=== PATIENT | female | born 1985 | race Caucasian/White ===

== ENCOUNTER → 2016-07-08 | Outpatient (CLI) | payer BC ==
--- NOTE | 2016-07-08 19:38 | US ---
EXAMINATION TYPE: US transvaginal DATE OF EXAM: 07/08/2016 6:15 PM COMPARISON: NONE CLINICAL HISTORY: R19.00 Pelvic Mass. Pelvic cramping, left pelvic pain TECHNIQUE: Transvaginal (TV) Date of LMP: 06/26/16 EXAM MEASUREMENTS: Uterus: 9.7 x 4.1 x 3.8 cm Endometrial Stripe: 0.6 cm Right Ovary: 10.5 x 8.4 x 8.1 cm Left Ovary: 11.7 x 8.4 x 10.7 cm 1. Uterus: Anteverted appears wnl as visualized 2. Endometrium: appears wnl 3. Right Ovary: enlarged, cystic area with low level echoes = 9.8 x 7.5 x 8.0cm possible endometriom a 4. Left Ovary: enlarged, cystic area with low level echoes = 10.4 x 8.0 x 10.1cm possible endometrio ma 5. Bilateral Adnexa: wnl 6. Posterior cul-de-sac: small amount of free fluid IMPRESSION: There is mild free fluid in the cul-de-sac. There are large complex bilateral ovarian cys ts. Follow-up is recommended. Normal uterus and endometrium.
== END | disposition home or self-care (01) ==
LOC: RADUSMAIN 17:48
PROVIDERS: ATTEND Family Medicine
DX: N83.292 Other ovarian cyst, left side (principal); N83.291 Other ovarian cyst, right side; R19.00 Intra-abdominal and pelvic swelling, mass and lump, unspecified site
CPT/HCPCS: 76830

== ENCOUNTER → 2016-07-20 | Outpatient (CLI) | payer BC ==
[2016-07-20 07:20] LABS: Basophils % (A) 0 %; CH 30.9; CHCM 32.3; Eosinophils # (A) 0.1 k/uL (0-0.7); Eosinophils % (A) 2 %; HCT 38.3 % (34.0-46.0); HDW 2.24; HGB 12.1 gm/dL (11.4-16.0); Luc # (Auto) 0.15; Luc % (Auto) 2; Lymphocytes % (A) 31 %; MCH 30.5 pg (25.0-35.0); MCHC 31.7 g/dL (31.0-37.0); MCV 96.2 fL (80.0-100.0); Mean Platelet Volume 8.6; Monocytes # (A) 0.3 k/uL (0-1.0); Monocytes % (A) 5 %; Neutrophils # (A) 3.9 k/uL (1.3-7.7); Neutrophils % (A) 60 %; RBC 3.98 m/uL (3.80-5.40); RDW 14.3 % (11.5-15.5); WBC 6.5 k/uL (3.8-10.6); WBC (Perox) 6.65
[2016-07-20 07:21] LABS: Anion Gap 9 mmol/L; Blood Urea Nitrogen 14 mg/dL (7-17); Carbon Dioxide 28 mmol/L (22-30); Chloride 106 mmol/L (98-107); Glucose 84 mg/dL (74-99); Non-African American GFR(MDRD) >60 (>60 ml/min/1.73 sqM); Potassium 4.1 mmol/L (3.5-5.1); Sodium 143 mmol/L (137-145)
== END ==
LOC: LABWHC1 06:45
PROVIDERS: ATTEND Obstetrics & Gynecology
DX: Z01.818 Encounter for other preprocedural examination (principal)
CPT/HCPCS: 36415; 80051; 82565; 82947; 84520; 85025; 86850; 86900; 86901; 87086

== ENCOUNTER 2016-07-29 08:07 | Inpatient (IN) | payer BC ==
[2016-07-28 08:51] VITALS: BMI 27.1
[~2016-07-29 08:07] MED LIST: DEXAMETHASONE SOD PHOSPHATE 10 MG/ML 1 ML VIAL IV ONE; HYDROmorphone 1 MG/ML 1 ML SYRINGE IVP PRN; LACTATED RINGERS 1,000 ML IV SCH; LIDOCAINE 1% 20 ML VIAL (10MG/ML) FOR IV START INTRADERMA PRN; SCOPOLAMINE 1.5MG/72HR PATCH TRANSDERM ONE; ceFAZolin 2 GM in SODIUM CHLORIDE 0.9% 100 ML IVPB ONE
[2016-07-29] MEDS: ONDANSETRON 4 MG/2 ML VIAL IVP ONE ×2 (08:27→12:38)
[2016-07-29] MEDS ORDERED: MIDAZOLAM 2 MG/2 ML VIAL IV ONE (09:01)
[2016-07-29] MEDS ORDERED: fentaNYL (PF) 50 MCG/ML 2 ML AMP INTRATHECA ONE (09:10)
[2016-07-29] MEDS ORDERED: GLYCOPYRROLATE 0.2 MG/ML 2 ML VIAL ONE (09:40)
[2016-07-29] MEDS ORDERED: NEOSTIGMINE 1 MG/ML 10 ML VIAL ONE (09:40)
[2016-07-29] MEDS ORDERED: ROCURONIUM BROMIDE 10 MG/ML 10 ML VIAL IV ONE (09:40)
[2016-07-29] MEDS ORDERED: MORPHINE SULFATE (PF) 0.3 MG/0.3 ML SYR ONE (09:40)
[2016-07-29] MEDS ORDERED: ePHEDrine 50 MG/ML 1 ML AMP ONE (09:40)
[2016-07-29] MEDS ORDERED: PROPOFOL 10 MG/ML 20 ML VIAL IV ONE (09:40)
[2016-07-29] MEDS ORDERED: LIDOCAINE 1% INJ 10MG/ML (20 ML MDV) ONE (09:40)
[2016-07-29] MEDS ORDERED: fentaNYL (PF) 50 MCG/ML 2 ML AMP ONE (09:40)
[2016-07-29] MEDS ORDERED: MIDAZOLAM 2 MG/2 ML VIAL ONE (09:40)
[2016-07-29] MEDS ORDERED: SUCCINYLCHOLINE CHLORIDE 100 MG/5 ML SYR IV ONE (09:40)
[2016-07-29] MEDS ORDERED: LACTATED RINGERS 1,000 ML IV ONE ×3 (10:23→16:15)
[2016-07-29] MEDS ORDERED: CELLULOSE,OXIDIZED 1 EACH EACH MISCELLANE ONE (10:50)
--- NOTE | 2016-07-29 11:35 | P.OP ---
Date of Procedure: 07/29/16 Preoperative Diagnosis: Bilateral adnexal masses Postoperative Diagnosis: Stage IV pelvic endometriosis. 15 cm left ovarian endometrioma 10 cm right ovarian endometrioma Pelvic adhesions Procedure(s) Performed: Exploratory laparotomy with lysis of pelvic adhesions, left salpingo- oophorectomy, right ovarian cystectomy, right ovarian reconstruction Anesthesia: GETAyoni Surgeon: Kimberly Vázquez Tester Compressed Gases #1: Irma Bangura Estimated Blood Loss (ml): 25 IV fluids (ml): 1,000 Urine output (ml): 70 Pathology: other (Right ovarian cyst wall, left fallopian tube and ovary) Condition: stable Disposition: PACU Indications for Procedure: Bilateral adnexal masses consistent with endometriomas found on abdominal imaging Operative Findings: Enlarged left ovary approximately 15 cm with chocolate cyst fluid consistent with endometrioma. Left ovary adherent to large bowel mesentery, omentum, posterior uterus. Distorted and densely scarred left fallopian tube. Right ovary with approximately 10 cm endometrioma with adhesions to bowel mesentery. Description of Procedure: After the patient was met in the preoperative holding area and all questions were answered, she was taken to the operating room where anesthetic was administered without incident. She had previously received a spinal anesthetic in the preoperative area. She was positioned, prepped and draped in the dorsal supine position. Appropriate timeout procedure was undertaken. A low transverse skin incision was made and carried down to the underlying fascia sharply and with the electrocautery. The fascia was incised in the midline and extended bilaterally with the Sharp scissors. The superior aspect of the fascial incision was grasped, elevated and the underlying rectus muscles dissected off sharply. The inferior aspect of the fascial incision was grasped , elevated and the underlying rectus muscles dissected off sharply. The rectus muscles were then in the midline and the peritoneum was identified. This was tented up with hemostats and entered sharply with Metzenbaum scissors. The peritoneal incision was extended inferiorly and superiorly. The mass was present at the abdominal wall with adhesions of omentum and endometriosis implants noted. The omental adhesions were sharply dissected away with Metzenbaum scissors as well as the Bovie electrocautery. The abdomen was then explored. The large presenting mass was felt to be the left ovary. There were both filmy and dense adhesions noted on the posterior aspect of the ovary. In the process of gently elevating the ovary for further dissection of the cyst was ruptured and thick chocolate fluid and clot was expressed. This was copiously suctioned. The cyst wall and ovary were then delineated with Dutton clamps and elevated out of the incision. Adhesions to bowel mesentery and omentum were noted. Some of these were dense. The left fallopian tube was significantly distorted and scarred to the cyst wall and ovarian tissue. The O' Jos-O'Belcher retractor was then placed at this point to allow for better visualization. The uterus was noted to be hyperemic and the left ovary was adherent to the entire superior aspect of the uterus. This was sharply dissected away. The right ovary was then visualized and was also noted to be enlarged and adherent to the posterior cul-de-sac. This was bluntly dissected away and the ovary was elevated. The right fallopian tube appeared inflamed however otherwise normal. Decision was made to perform a cystectomy on the right ovary. The capsule of the ovary was incised and the cyst wall was identified. The cyst was entered during this process and chocolate-like fluid was noted. The cyst was dissected away from the underlying ovarian tissue bluntly and sharply. The cyst wall was then completely removed and passed off as pathology specimen. The ovary was then reconstructed using 3-0 Vicryl suture on an SH needle. This was started at the base and a circular or pursestring fashion. The ovarian capsule was closed in a baseball stitch fashion over top. The anatomy was reinspected and noted to be hemostatic at this time. Attention was then turned back to the left ovary. Sharp dissection was utilized to meticulously dissect dense adhesions from the large bowel mesentery to the ovary. Electrocautery was utilized to dissect adhesions away from the fundus of the uterus. Once normal anatomy including the round ligament and tubo-ovarian pedicle were identified, the decision was made to proceed with LSO. The left fallopian tube appeared extremely unhealthy and a risk for ectopic , recurrence of endometriosis or infertility. The pinnae clamp was placed across the tubo-ovarian pedicle and a separate Kathie clamp was placed across the infundibulopelvic ligament being very careful to keep this away from the pelvic sidewall and bowel adhesions. Nasal Sharp scissors were utilized to amputate the specimen. 2-0 Vicryl suture was utilized to doubly suture ligate both pedicles. The pelvis was then copiously suction irrigated. The omentum was inspected and noted to be hemostatic. Areas of adhesiolysis were inspected and noted to be hyperemic but not actively bleeding. The posterior cul-de-sac was inspected and there were endometriosis implants that were cauterized using the Bovie electrocautery. Adhesion barrier , intercede, was placed in the left ovarian fossa and a separate piece was utilized to wrap the righ fallopian tube and ovary to prevent adhesions. Self retraining retractor was removed. Sponges were removed. The rectus muscles were inspected and noted to be hemostatic. There were reapproximated in the midline. The fascia was then closed with 0 Vicryl suture in a running fashion. The subcuticular tissue was copiously suction irrigated and reapproximated with 2-0 Vicryl suture. The skin was then closed using bing. Dressing was applied. All counts reported to me as correct by the operating room staff. The patient was awoken from anesthetic and transported to the recovery area in stable condition.
[2016-07-29] MEDS ORDERED: ZOLPIDEM 5 MG TAB PO PRN (12:00)
[2016-07-29] MEDS ORDERED: METOCLOPRAMIDE 5 MG/ML 2 ML VIAL IVP PRN (12:00)
[2016-07-29] MEDS ORDERED: diphenhydrAMINE 50 MG/ML 1 ML VIAL IVP PRN (12:00)
[2016-07-29] MEDS ORDERED: IBUPROFEN 600 MG TAB PO PRN (12:00)
[2016-07-29] MEDS ORDERED: ONDANSETRON 4 MG/2 ML VIAL IVP PRN (12:00)
[2016-07-29] MEDS ORDERED: SIMETHICONE 80 MG CHEWABLE PO PRN (12:00)
[2016-07-29] MEDS ORDERED: Acetaminophen-Codeine 300-30mg TAB PO PRN ×2 (12:00)
[2016-07-29] MEDS ORDERED: NALBUPHINE 10 MG/ML AMPUL IV PRN (12:18)
[2016-07-29] MEDS ORDERED: MORPHINE SULFATE 4 MG/ML SYRINGE IVP PRN (12:18)
[2016-07-29] MEDS ORDERED: NALOXONE 0.4 MG/ML 1 ML VIAL IV PRN (12:18)
[2016-07-29] MEDS: KETOROLAC 30 MG/ML 1 ML VIAL IVP PRN ×2 (14:45→21:51)
[2016-07-29] MEDS: LACTATED RINGERS 1,000 ML IV SCH ×2 (15:14→21:56)
[2016-07-29] MEDS: SENNOSIDES-DOCUSATE SODIUM 1 EACH TAB PO SCH (21:38)
[2016-07-29] MEDS: CITALOPRAM HYDROBROMIDE 20 MG TAB PO SCH (21:38)
[2016-07-29] MEDS: MONTELUKAST 10 MG TAB PO SCH (21:38)
[2016-07-30 07:29] LABS: Basophils % (A) 1 %; CH 31.2; CHCM 33.3; Eosinophils % (A) 1 %; HCT 29.7 % (34.0-46.0); HDW 2.35; Luc # (Auto) 0.09; Luc % (Auto) 1; Lymphocytes # (A) 1.7 k/uL (1.0-4.8); Lymphocytes % (A) 24 %; MCH 31.1 pg (25.0-35.0); MCHC 33.1 g/dL (31.0-37.0); MCV 93.9 fL (80.0-100.0); Mean Platelet Volume 8.6; Monocytes # (A) 0.3 k/uL (0-1.0); Monocytes % (A) 4 %; Neutrophils # (A) 4.7 k/uL (1.3-7.7); Neutrophils % (A) 69 %; RBC 3.16 m/uL (3.80-5.40); RDW 13.8 % (11.5-15.5); WBC 6.9 k/uL (3.8-10.6); WBC (Perox) 7.27
[2016-07-30 07:31] LABS: HGB 9.8 gm/dL (11.4-16.0)
[2016-07-30] MEDS: LACTATED RINGERS 1,000 ML IV SCH ×2 (08:16→19:11)
[2016-07-30 09:13] LABS: Glucose,Whole Blood 106 mg/dL (75-99)
[2016-07-30] MEDS: SENNOSIDES-DOCUSATE SODIUM 1 EACH TAB PO SCH ×2 (09:21→20:23)
[2016-07-30] MEDS: KETOROLAC 30 MG/ML 1 ML VIAL IVP PRN ×2 (09:25→19:12)
--- NOTE | 2016-07-30 09:27 | P.PN ---
Subjective Principal diagnosis: Postop day 1, endometriosis She is complaining of some mild abdominal pain with movement and coughing. She does feel somewhat lightheaded when sitting upright at the bedside. Denies chest pain, shortness of breath, nausea, vomiting, fevers. She did feel cold throughout the night. She is feeling hungry. She has not passed gas yet. Objective - Vital Signs Vital signs: Vital Signs Temp 99.0 F 07/30/16 08:05 Pulse 93 07/30/16 08:05 Resp 16 07/30/16 08:05 BP 80/49 07/30/16 08:05 Pulse Ox 97 07/30/16 08:05 Intake & Output 07/29/16 07/30/16 07/30/16 18:59 06:59 18:59 Intake Total 1850 Output Total 95 1400 Balance 1755 -1400 Intake: IV 1850 Output: Urine 70 1400 Estimated Blood Loss 25 Other: Voiding Method Indwelling Catheter Indwelling Catheter - Constitutional General appearance: Present: no acute distress - Respiratory Respiratory: bilateral: CTA, negative: diminished, wheezing - Cardiovascular Rhythm: regular - Gastrointestinal Gastrointestinal Comment(s): Incision clean, dry, intact with dressing in place. General gastrointestinal: Present: soft, tenderness. Absent: distended - Integumentary Integumentary: Present: normal. Absent: pale - Neurologic Neurologic: Absent: focal deficits - Psychiatric Psychiatric: Present: appropriate affect - Labs CBC & Chem 7: 07/30/16 06:45 Labs: Abnormal Lab Results - Last 24 Hours (Table) 07/30/16 07/30/16 Range/Units 06:45 09:01 RBC 3.16 L (3.80-5.40) m/uL Hgb 9.8 L D (11.4-16.0) gm/dL Hct 29.7 L (34.0-46.0) % POC Glucose (mg/dL) 106 H (75-99) mg/dL Assessment and Plan (1) Endometriosis Narrative/Plan: Operative findings were reviewed in detail with the patient and her 's. Based on the extent of her pelvic endometriosis I have recommended a 3-6 month course of Depo-Lupron Lupron. I reviewed this medication and anticipated side effects. Another option would be a course of Depo-Provera. She has used this medication in the past with some success. Due to the extent of the endometriosis noted on the large bowel on slow advance of diet is recommended. She is currently tolerating clears. We'll advance diet with flatus. She did undergo a bowel prep prior to surgery and I believe was somewhat hypovolemic secondary to this. She is having some hypotension this morning, she is not tachycardic. Hemodynamically she is stable. Her abdomen is benign. She is receiving fluid bolus at this time and we will monitor closely. Status: Acute (2) Endometriosis of colon Status: Acute (3) S/P left oophorectomy Status: Acute
[2016-07-30] MEDS ORDERED: ACETAMINOPHEN TAB 325 MG TAB PO PRN (11:36)
--- NOTE | 2016-07-30 18:36 | P.PN ---
Progress Note - Text Date: 07/30 Time:1005 Patient is status post exp lap. Patient seen this morning with VAS score of 2, needed Toradol for breakthrough pain. c/o of pruritus and wastreated with Benadryl .no c/o nausea/vomiting, comfortable and doing well today.
[2016-07-30] MEDS: CITALOPRAM HYDROBROMIDE 20 MG TAB PO SCH (20:23)
[2016-07-30] MEDS: MONTELUKAST 10 MG TAB PO SCH (20:23)
--- NOTE | 2016-07-31 08:42 | P.DS ---
Providers Date of admission: 07/29/16 08:07 Expected date of discharge: 07/31/16 Attending physician: Kimberly Vázquez Primary care physician: Danial Ulloa - Discharge Diagnosis(es) (1) Endometriosis Current Visit: Yes Status: Acute (2) Endometriosis of colon Current Visit: Yes Status: Acute (3) S/P left oophorectomy Current Visit: Yes Status: Acute Hospital Course: This is a 30-year-old 0 woman who was admitted for surgical treatment of bilateral adnexal masses. She went to the operating room where she was underwent an exploratory laparotomy. Findings at the time of surgery were significant for stage IV endometriosis involving large bowel, bilateral ovaries and posterior cul-de-sac. Please see the operative note for details. She underwent a left salpingo-oophorectomy to remove an approximately 15 cm left ovarian endometrioma and severely scarred and distorted the left fallopian tube. She underwent a right ovarian cystectomy to remove approximately 10 cm right ovarian endometrioma. The patient's postoperative course was essentially unremarkable. She did have some postoperative hypotension that was managed with IV fluid boluses. She was hemodynamically stable with a postoperative day #1 hemoglobin of 9.8. She had return of bowel function on postoperative day #1 and her diet was advanced. She was able to ambulate and void without difficulty. By postoperative day #2 she was tolerating a general diet. Her pain was well-controlled with oral pain medications. She is being able to ambulate and void without difficulty. Her incision appeared well healing and her abdomen was benign. She was therefore discharged home with postoperative instructions for care and follow-up. Postoperative treatment with Depo-Lupron was discussed with the patient and her for ongoing management of stage IV endometriosis. We'll attempt to order this and administered prior to discharge home if not she will get this from the pharmacy and return to the office for administration. She will also need to return to the office for staple removal. Patient Condition at Discharge: Good Plan - Discharge Summary New Discharge Prescriptions: Acetaminophen-Codeine 300-30mg [Tylenol w/codeine #3] 2 each PO Q6HR PRN #30 tab PRN Reason: Severe Pain Leuprolide Acetate [Lupron Depot] 11.25 mg IM ONCE #1 syringekit Discharge Medication List Aspirin/Acetaminophen/Caffeine [Excedrin Migraine Caplet] 1 tab PO DAILY [History] Citalopram Hydrobromide [CeleXA] 20 mg PO HS 07/28/16 [History] Fexofenadine HCl [Sofía Allergy] 180 mg PO DAILY 07/28/16 [History] Melatonin 10 mg PO HS 07/28/16 [History] Montelukast [Singulair] 10 mg PO HS 07/28/16 [History] Acetaminophen-Codeine 300-30mg [Tylenol w/codeine #3] 2 each PO Q6HR PRN #30 tab 07/31/16 [Rx] Ibuprofen [Motrin] 600 mg PO Q6HR PRN #0 tab 07/31/16 [Rx] Leuprolide Acetate [Lupron Depot] 11.25 mg IM ONCE #1 syringekit 07/31/16 [Rx] Follow up Appointment(s)/Referral(s): Kimberly Vázquez MD [STAFF PHYSICIAN] - 3 Days (staple removal) Activity/Diet/Wound Care/Special Instructions: Follow-up in the office for staple removal in 1-3 days. Call the office with any concerning signs or symptoms including severe abdominal pain, nausea, vomiting, signs of wound infection, fever greater than 100.5, redness or swelling of the lower extremities. No heavy lifting. Discharge Disposition: HOME SELF-CARE
[2016-07-31] MEDS: SENNOSIDES-DOCUSATE SODIUM 1 EACH TAB PO SCH (09:09)
[2016-07-31 09:21] VITALS: BP 105/60; PULSE 109; RESP 16; TEMP 99.3
== END 2016-07-31 14:41 | disposition home or self-care (01) | DRG 743 ==
LOC: 2ORMAIN 08:07 → EDSTATUS 09:30 → 6PED 11:34
PROVIDERS: ADMIT Obstetrics & Gynecology; ATTEND Obstetrics & Gynecology
PROC: 0UT10ZZ Resection of Left Ovary, Open Approach (ICD-10-PCS; principal; 2016-07-29 09:30)
PROC: 0UT60ZZ Resection of Left Fallopian Tube, Open Approach (ICD-10-PCS; principal; 2016-07-29 09:30)
PROC: 0DNS0ZZ (ICD-10-PCS; principal; 2016-07-29 09:30)
PROC: 0UB00ZZ Excision of Right Ovary, Open Approach (ICD-10-PCS; principal; 2016-07-29 09:30)
PROC: 0DNE0ZZ Release Large Intestine, Open Approach (ICD-10-PCS; principal; 2016-07-29 09:30)
DX: N80.3 Endometriosis of pelvic peritoneum (principal); E86.1 Hypovolemia; N73.6 Female pelvic peritoneal adhesions (postinfective); N80.1 Endometriosis of ovary; N80.5 Endometriosis of intestine; I95.81 Postprocedural hypotension; L29.9 Pruritus, unspecified; N94.10 Unspecified dyspareunia; N83.202 Unspecified ovarian cyst, left side; N83.201 Unspecified ovarian cyst, right side
CPT/HCPCS: 81025; 85025; 86850; 86900; 86901; 88305

== ENCOUNTER → 2016-12-05 | Outpatient (CLI) | payer BC | END | disposition home or self-care (01) | LOC: LABWHC1 17:11 | PROVIDERS: ATTEND Psychiatry & Neurology Psychiatry | DX: F32.9 Major depressive disorder, single episode, unspecified (principal) | CPT/HCPCS: 36415; 84439; 84443; 84481 ==

== ENCOUNTER → 2017-05-17 | Outpatient (CLI) | payer SELFPAY | END | disposition home or self-care (01) | LOC: LABWHC1 16:34 | PROVIDERS: ATTEND Obstetrics & Gynecology Reproductive Endocrinology | DX: E34.9 Endocrine disorder, unspecified (principal) | CPT/HCPCS: 36415; 84146 ==

== ENCOUNTER → 2017-05-22 | Outpatient (CLI) | payer BC ==
--- NOTE | 2017-05-22 15:39 | FL ---
EXAMINATION TYPE: FL hysterosalpingography DATE OF EXAM: 05/22/2017 HISTORY: Infertility. Prior salpingitis and left salpingo-oophorectomy. PROCEDURE: 30 seconds of fluoroscopy was utilized with 11 images saved. Informed consent was obtained and all the patient's questions were answered. Preliminary fluoroscopy film of the pelvis reveals no distinct abnormality. The vaginal cuff was cleansed and a Betadine solu tion on 3 occasions. A speculum was introduced and the external cervical os was localize. Hysterosal pingography catheter was introduced into the uterus and balloon insufflation device deployed. Approx imately 5 cc of nonionic contrast was injected in a retrograde manner. The uterus has a normal size shape and appearance. No persistent uterine filling defects are seen. T he left fallopian tube is surgically absent and the right fallopian tube fills readily with spill dem onstrated into the peritoneal cavity. IMPRESSION: 1. Patency of the right fallopian tube without irregularity and spill of contrast into the peritoneal cavity on the right. 2. Surgical absence of the left fallopian tube.
== END | disposition home or self-care (01) ==
LOC: RADFLWHC 14:27
PROVIDERS: ATTEND Obstetrics & Gynecology Reproductive Endocrinology
DX: N70.11 Chronic salpingitis (principal); E34.9 Endocrine disorder, unspecified; Z90.79 Acquired absence of other genital organ(s)
CPT/HCPCS: 58340; 74740; Q9966

== ENCOUNTER → 2020-11-20 | Outpatient (CLI) | payer BC | END | disposition home or self-care (01) | LOC: LABWHC1 10:46 | PROVIDERS: ATTEND Nurse Practitioner Family | DX: J30.89 Other allergic rhinitis (principal) | CPT/HCPCS: 36415 ==

== ENCOUNTER → 2021-01-04 | Outpatient (CLI) | payer BC ==
[2021-01-04 19:48] LABS: Basophils # (A) 0.06 X 10*3/uL (0.00-0.10); Basophils % (A) 0.8 %; Eosinophils # (A) 0.06 X 10*3/uL (0.04-0.35); Eosinophils % (A) 0.8 %; HCT 42.9 % (37.2-46.3); Lymphocytes % (A) 40.7 %; MCHC 32.6 g/dL (32.0-37.0); MCV 95.1 fL (80.0-97.0); Mean Platelet Volume 12.9 fL (9.5-12.2); Monocytes # (A) 0.47 X 10*3/uL (0.20-1.00); Neutrophils # (A) 4.05 X 10*3/uL (1.80-7.70); Neutrophils % (A) 51.4 %; Platelet Count 216 X 10*3/uL (140-440); RBC 4.51 X 10*6/uL (4.10-5.20); WBC 7.86 X 10*3/uL (4.50-10.00)
[2021-01-05 13:48] LABS: African American GFR (CKD) 95.3 (60.0-200.0); Anion Gap 17.7 mmol/L (4.00-12.00); BUN/Creat Ratio 10.89 Ratio (12.00-20.00); Blood Urea Nitrogen 9.8 mg/dL (9.0-27.0); Calcium 9.5 mg/dL (8.7-10.3); Carbon Dioxide 15.3 mmol/L (21.6-31.8); Non-African American GFR(CKD) 82.3 (60.0-200.0); Potassium 4.7 mmol/L (3.5-5.5)
== END | disposition home or self-care (01) ==
LOC: LABWHC1 12:01
PROVIDERS: ATTEND Psychiatry & Neurology Neurology
DX: G43.909 Migraine, unspecified, not intractable, without status migrainosus (principal)
CPT/HCPCS: 36415; 80048; 82306; 85025

== ENCOUNTER → 2021-05-06 | Outpatient (CLI) | payer BC ==
[2021-05-06 18:30] LABS: African American GFR (CKD) 113.9 (60.0-200.0); Anion Gap 10.1 mmol/L (10.00-18.00); BUN/Creat Ratio 9.94 Ratio (12.00-20.00); Blood Urea Nitrogen 7.7 mg/dL (9.0-27.0); Carbon Dioxide 20.3 mmol/L (20.0-27.5); Non-African American GFR(CKD) 98.3 (60.0-200.0); Potassium 4.4 mmol/L (3.5-5.5)
== END | disposition home or self-care (01) ==
LOC: LABWHC1 12:19
PROVIDERS: ATTEND Psychiatry & Neurology Neurology
DX: E87.2 Acidosis (principal)
CPT/HCPCS: 36415; 80048; 83605

== ENCOUNTER 2022-01-28 12:08 | Day surgery (SDC) | payer BC ==
[~2022-01-28 12:08] MED LIST changes: -DEXAMETHASONE SOD PHOSPHATE 10 MG/ML 1 ML VIAL IV ONE; -HYDROmorphone 1 MG/ML 1 ML SYRINGE IVP PRN; -LACTATED RINGERS 1,000 ML IV SCH; +LIDOCAINE 1% (10MG/ML) FOR IV START INTRADERMA PRN; -LIDOCAINE 1% 20 ML VIAL (10MG/ML) FOR IV START INTRADERMA PRN; +ONDANSETRON 4 MG/2 ML VIAL IVP PRN; -SCOPOLAMINE 1.5MG/72HR PATCH TRANSDERM ONE; -ceFAZolin 2 GM in SODIUM CHLORIDE 0.9% 100 ML IVPB ONE
[2022-01-28] MEDS: LACTATED RINGERS 1,000 ML IV SCH ×2 (12:53→14:51)
[2022-01-28 12:58] VITALS: TEMP 97
[2022-01-28] MEDS ORDERED: LIDOCAINE 2% INJ 20 MG/ML (2 ML VIAL) ONE (14:57)
[2022-01-28] MEDS ORDERED: PROPOFOL 10 MG/ML 20 ML VIAL IV ONE (14:57)
--- NOTE | 2022-01-28 15:13 | P.PCN ---
Date of Procedure: 01/28/22 Procedure(s) Performed: BRIEF HISTORY: Patient is a 36-year-old pleasant white female scheduled for an elective colonoscopy as a part of evaluation of intermittent rectal bleeding for the last 2 weeks' duration. PROCEDURE PERFORMED: Colonoscopy. PREOPERATIVE DIAGNOSIS: Intermittent rectal bleeding of 2 weeks duration. IV sedation per Anesthesia. PROCEDURE: After informed consent was obtained, the patient, was brought into the endoscopy unit. IV sedation was administered by Anesthesia under continuous monitoring. Digital rectal examination was normal. Initially the Olympus CF-160 flexible video colonoscope was then inserted in the rectum, gradually advanced into the cecum without any difficulty. Careful examination was performed as the scope was gradually being withdrawn. Ileocecal valve and the appendiceal orifice were visualized and appeared normal. Prep was excellent. Mucosa of the cecum, ascending colon, transverse colon, descending colon, sigmoid colon, and rectum appeared normal. Retroflexion was performed in the rectum and Small internal hemorrhoidss were seen. The patient tolerated the procedure well. IMPRESSION: Normal colon from rectum to cecum with no evidence of colitis or colorectal neoplasia Small internal hemorrhoids RECOMMENDATIONS: Findings of this examination were discussed with the patient as well as her family. She was advised to be a high-fiber diet and take fiber supplements a regular basis. She can have a repeat screening colonoscopy in 10 years..
[2022-01-28 15:53] VITALS: BP 98/63; PULSE 70; RESP 18
== END 2022-01-28 15:50 | disposition home or self-care (01) ==
LOC: ORWHC2ENDO 12:08
PROVIDERS: ATTEND Internal Medicine Gastroenterology
DX: K64.8 Other hemorrhoids (principal)
CPT/HCPCS: 81025; 45378; J2704; J2001

== ENCOUNTER → 2022-02-04 | Outpatient (CLI) | payer BC ==
--- NOTE | 2022-02-04 14:49 | US ---
EXAMINATION TYPE: US pelvis complete transvag DATE OF EXAM: 02/04/2022 COMPARISON: CLINICAL HISTORY: N80.30 ENDO OF PELVIC PERITONEUM. Patient states having endometriosis. Left ovary and fallopian tube removed. Pain. TECHNIQUE: Transvaginal (TV) and Transabdominal (TA) . Transabdominal sonographic images of the pel vis were acquired. Transvaginal sonographic images were medically necessary to better assess the fol lowing anatomy: Endometrium Date of LMP: 12/09/2021, G0 EXAM MEASUREMENTS: Uterus: 8.5 x 3.9 x 3.2 cm Endometrial Stripe: 0.4 cm Right Ovary: 2.7 x 1.6 x 1.6 cm 1. Uterus: Anteverted Heterogenous 2. Endometrium: Nonshadowing echogenic lesions seen in endometrial canal 3. Right Ovary: Hypoechoic lesion - 1.2 x 1.1 x 1.2 cm 4. Left Ovary: Surgically absent 5. Bilateral Adnexa: wnl 6. Posterior cul-de-sac: no free fluid Cervix- fluid seen within canal. Possible polyp= 1.0 x 0.6 x 0.6 cm IMPRESSION: 1. Echogenic endometrial lesions may reflect debris versus underlying polyps. 2. Probable endocervical polyp. 3. Probable functional right ovarian cyst.
== END | disposition home or self-care (01) ==
LOC: RADUSWWP 13:33
PROVIDERS: ATTEND Family Medicine
DX: N80.30 Endometriosis of pelvic peritoneum, unspecified (principal)
CPT/HCPCS: 76830; 76856

== ENCOUNTER → 2022-07-15 | Outpatient (CLI) | payer BC ==
--- NOTE | 2022-07-18 08:46 | MM ---
Reason for Exam: Screening (asymptomatic). Baseline mammogram. Patient History: Menarche at age 10. Patient has no children. Left ovary removed at age 31. Right ovary removed at age 31. Risk Values: Cyn 5 year model risk: 0.5%. NCI Lifetime model risk: 12.3%. Prior Study Comparison: Patient's first Mammogram. Tissue Density: The breast tissue is heterogeneously dense. This may lower the sensitivity of mammography. Findings: Analyzed By CAD. Left breast: 6 mm asymmetry on MLO view middle depth inferiorly 7.4 cm from the nipple. Right breast: 5 mm asymmetry lateral and CC views 6.4 cm from nipple. Overall Assessment: Incomplete: need additional imaging evaluation, BI-RAD 0 Management: Diagnostic Mammogram of both breasts. 3-D spot imaging and lateral view. A clinical breast exam by your physician is recommended on an annual basis and results should be correlated with mammographic findings. [facility] will attempt to contact patient to return for supplemental views and ultrasound if indicated. Electronically signed and approved by: Boyd Church DO
== END | disposition home or self-care (01) ==
LOC: RADMAMWWP 08:24
PROVIDERS: ATTEND Family Medicine
DX: Z12.31 Encounter for screening mammogram for malignant neoplasm of breast (principal)
CPT/HCPCS: 77067

== ENCOUNTER → 2022-07-19 | Outpatient (CLI) | payer BC ==
--- NOTE | 2022-07-19 08:12 | MM ---
Reason for Exam: Additional evaluation requested from abnormal screening. Last screening mammogram was performed less than 1 month ago. Patient History: Menarche at age 10. Patient has no children. Left ovary removed at age 31. Right ovary removed at age 31. Risk Values: Cyn 5 year model risk: 0.5%. NCI Lifetime model risk: 12.3%. Prior Study Comparison: 07/15/2022 Bilateral MG screening mammo w CAD, [facility]. Tissue Density: The breast tissue is heterogeneously dense. This may lower the sensitivity of mammography. Findings: Analyzed By CAD. No distinct persistent nodular mass. Follow-up in one year is advised. Overall Assessment: Negative, BI-RAD 1 Management: Screening Mammogram of both breasts in 1 year. A clinical breast exam by your physician is recommended on an annual basis and results should be correlated with mammographic findings. This exam should not preclude additional follow-up of suspicious palpable abnormalities. Results were given to the patient verbally at the time of exam. Electronically signed and approved by: Darrel Robertson M.D. Radiologis
== END | disposition home or self-care (01) ==
LOC: RADMAMWWP 07:49
PROVIDERS: ATTEND Family Medicine
DX: R92.8 Other abnormal and inconclusive findings on diagnostic imaging of breast (principal)
CPT/HCPCS: 77062; 77066